=== PATIENT | female | born 1990 | race Caucasian/White ===

== ENCOUNTER → 2021-09-12 12:17 | Outpatient (CLI) | payer SELFPAY ==
--- NOTE | 2021-09-12 12:21 | DI.US.S_ITS ---
PROCEDURE: US OB >= 14 WEEKS FETUS INDICATIONS: 20 wk anatomy screen - is already 25 weeks OUTSIDE/PRIOR DATING DATA: First dating scan (date and location): 09/12/2021. Estimated date of delivery (AUDRA) from first dating scan: 11/30/2021. The calculations are made using the ultrasound AUDRA of 11/30/2021. TECHNIQUE: Real-time scanning was performed of the fetus, with image documentation and biometric measurements. COMPARISON: None. FINDINGS: General: A single living intrauterine gestation is present. Presentation: Vertex. Placenta: Placental position is posterior , without previa. Amniotic fluid index: 14 cm, normal range is 5-24 cm. heart rate: 143 beats per minute. Maternal cervical canal: 5.7 cm long. Normal lower limit is 2.5 cm. biometrics: Biparietal diameter: 29 weeks 5 days Head circumference: 29 weeks 3 days Abdominal circumference: 28 weeks 1 day Femur length: 27 weeks 3 days Clinically estimated gestational age: N/a Composite gestational age from present scan: 28 weeks 5 days Estimated weight and percentile: 1182 g Anatomic survey: Neuro: Suboptimally visualized. Nuchal skin fold: Normal at less than 6 mm between 14-21 weeks gestational age. Face: Nose and lips, facial profile are normal. Spine: Suboptimally visualized. Heart: 4-chambered heart is present, and cardiac outflow tracts are not well seen. Diaphragm: Diaphragm is intact. Stomach: Left-sided stomach is present. Kidneys: No hydronephrosis. Normal is less than 5 mm in 2nd trimester, less than 7 mm in 3rd trimester. Cord: Not well seen. Bladder: Normal in size. Extremities: Suboptimally visualized. IMPRESSION: 1. A 28-week 5-day single living IUP corresponding to ultrasound AUDRA of 11/30/2021. 2. Limited anatomic survey secondary to advanced gestational age. We strive to produce accurate, complete, and clear reports of imaging services. To assist us in improving patient care, this report was composed using standard report templates and voice recognition software. Therefore, it may contain abnormal punctuation, insertions and/or omissions. Occasional wrong-word or sound-alike substitutions may occur. Though we review the report and make efforts to correct it, we do recommend that the report be read carefully in proper context to recognize any text inaccuracies. Dictated by: Tunde SMITH Interpreted: Nirmal Underwood MD on 09/12/2021 at 13:20 Transcribed by: RAMÓN on 09/12/2021 at 13:23 Approved by: Nirmal Underwood M.D. on 09/12/2021 at 13:46
[2021-09-12 14:33] LABS: Appearance Urine UA SL CLOUDY; Bilirubin Urine UA NEGATIVE (NEGATIVE); Color Urine UA YELLOW; Glucose Urine UA NEGATIVE (Negative); Ketones Urine UA NEGATIVE (NEGATIVE); Leukocyte Esterase Urine UA NEGATIVE (NEGATIVE); Nitrite Urine UA NEGATIVE (Negative); Occult Blood Urine UA NEGATIVE (Negative); Protein Urine UA NEGATIVE (Negative); Specific Gravity Urine UA 1.015 (1.000-1.035); Urobilinogen Urine UA 0.2 E.U./dL (0.2)
[2021-09-12 15:23] LABS: Add Manual Diff / Slide Review NO; Basophils Absolute Auto 0 /uL (0-100); Basophils Percent Auto 0.1 % (0-2); Eosinophils Absolute Auto 100 /uL (0-450); Eosinophils Percent Auto 0.7 % (2-4); Hematocrit 31.1 % (36-46); Hemoglobin 10.7 g/dL (12.0-16.0); Lymphocytes Absolute Auto 1200 /uL (1100-4500); Lymphocytes Percent Auto 11.5 % (25-40); Mean Corpuscular HGB Conc 34.3 % (30-36); Mean Corpuscular Hemoglobin 31.6 PG (26-34); Mean Corpuscular Volume 92.1 fL (80-100); Monocytes Absolute Auto 700 /uL (0-900); Monocytes Percent Auto 6.3 % (3-14); Neutrophils Absolute Auto 8700 /uL (1500-7000); Neutrophils Percent Auto 81.4 % (50-75); Platelet Count 287 X10^3/uL (150-400); Red Blood Cell Count 3.37 X10^6/uL (4.0-5.2); Red Cell Distribution Width 13.7 % (11.6-14.8); White Blood Cell Count 10.8 X10^3/uL (4.5-11.0)
[2021-09-12 16:10] LABS: GTT (PREG) 1 Hour PP 50gm Dose 136 mg/dL (76-139)
[2021-09-13 06:07] LABS: RPR Screen Non Reactive (Non Reactive)
[2021-09-13 08:41] LABS: Varicella IgG Antibody <135 index (Immune >165)
[2021-09-14 16:24] LABS: Hepatitis B Surface Antigen NEGATIVE s/c (NEGATIVE); Rubella Antibody IgG 1.7 IU/mL (>15)
[2021-09-14 16:39] LABS: HIV 1 & 2 Ab/Ag 4th Gen Combo NEGATIVE (NEGATIVE); Hep C Virus Ab w/Reflex Quant NEGATIVE s/c (NEGATIVE)
== END ==
PROVIDERS: PCP Obstetrics & Gynecology; Referring Provider Obstetrics & Gynecology; Visit Provider Obstetrics & Gynecology
DX: Z34.83 Encounter for supervision of other normal pregnancy, third trimester (principal); Z3A.28 28 weeks gestation of pregnancy
CPT/HCPCS: 36415; 76811; 80055; 81003; 82950; 86787; 86803; 86850; 86900; 86901; 87086; 87389

== ENCOUNTER → 2021-10-09 15:34 | Outpatient (CLI) | payer MEDICAID, SELFPAY ==
[2021-10-09 21:34] LABS: Urine N gonorrhoeae NOT DETECTED
[2021-10-09 21:45] LABS: Urine Chlamydia NOT DETECTED
== END ==
PROVIDERS: PCP Obstetrics & Gynecology; Visit Provider Obstetrics & Gynecology
DX: Z34.82 Encounter for supervision of other normal pregnancy, second trimester (principal); Z3A.27 27 weeks gestation of pregnancy
CPT/HCPCS: 87491; 87591

== ENCOUNTER → 2021-11-15 15:32 | Outpatient (CLI) | payer OTHER, MEDICAID, SELFPAY ==
[2021-11-17 09:47] LABS: Strep Grp B PCR POS for Grp B Strep
== END ==
PROVIDERS: PCP Obstetrics & Gynecology; Visit Provider Obstetrics & Gynecology
DX: Z36.85 Encounter for antenatal screening for Streptococcus B (principal); Z3A.37 37 weeks gestation of pregnancy
CPT/HCPCS: 87653

== ENCOUNTER 2021-11-23 15:27 | Outpatient (CLI) | payer OTHER, MEDICAID, SELFPAY | END 2021-11-23 16:15 | disposition home or self-care (01) | LOC: OB 11-26 10:49 | PROVIDERS: PCP Obstetrics & Gynecology; Referring Provider Obstetrics & Gynecology; Visit Provider Obstetrics & Gynecology | DX: O36.8130 Decreased fetal movements, third trimester, not applicable or unspecified (principal); Z3A.39 39 weeks gestation of pregnancy | CPT/HCPCS: 59025; G0378; G0379 ==

== ENCOUNTER 2021-11-29 16:58 | Inpatient (IN) | payer OTHER, MEDICAID, SELFPAY ==
--- NOTE | 2021-11-29 18:13 | P.HPOB_ITS ---
OB HPI Date/Time Date of admission: 11/29/21 Date Patient Seen: 11/29/21 Time Patient Seen: 18:14 History of Present Condition Chief complaint: GETTING STENT IN HAND FOR ANTIBIOTICS FOR LABOR AUDRA Calculator Estimated Delivery Date Method Current WG Current Estimate 11/30/21 Manual 39w 6d Other Estimates 12/12/21 LMP (Certain) 38w 1d Estimated Gestational Age (weeks): 39+6 : 2 Para: 1 care: limited care, initiated at week # (29), number of visits (6) and pounds weight gain (2) Dating criteria OB: LMP confirmed by 2nd trimester US Ultrasounds: normal mid trimester US Obstetrical complications: none Medical complications OB: none Indications Indication for induction OB: other (Poor dating) Preadmission Labs Last OB Lab Results: Blood Type O Positive 11/29/21 19:00 11/29/21 Antibody Screen Negative 11/29/21 19:00 11/29/21 Hematocrit 35.2 % (36-46) L 11/29/21 19:00 11/29/21 Hemoglobin 12.1 g/dL (12.0-16.0) 11/29/21 19:00 11/29/21 Hepatitis B Surface Antigen Negative s/c (NEGATIVE) 09/12/21 13:44 09/12/21 Hepatitis C Antibody Negative s/c (NEGATIVE) 09/12/21 13:44 09/12/21 Rubella Antibody 1.7 IU/mL (>15) L 09/12/21 13:44 09/12/21 Varicella-Zoster IgG Antibody <135 index (Immune >165) L 09/12/21 13:44 09/12/21 Glucose 1 Hour 136 mg/dL (76-139) 09/12/21 13:44 09/12/21 Group B Streptococcus (PCR) Pos for grp b strep H 11/15/21 15:32 11/15/21 -: Chlamydia screen: negative, Gonorrhea screen: negative and Urine: negative External Labs -: Urine: negative Prior (ies) Past Pregnancies Del. Date GA/Weeks Labor Lgth Wt Sex Route Outcome Anesthesia Place Delv Breastfeed Preg Comp Name 10/31/17 35 5 5 lb 15 oz Female vaginal live - epidur al IH 2 yrs labor delivery Liara Evaluation Evaluation Baseline heart rate: 140 Variability: Moderate (11-25) monitor accelerations: Present Monitor Decelerations: Absent Contraction Frequency (minutes): 6 Uterine Contraction Intensity: Mild Status: Category l Dilation (cm): 6 Effacement (%): 85 station: 0 Position of cervix: anterior Consistency: medium [facility] Medical History (Updated 10/15/21 @ 16:48 by Pinky Molina MD) Premature delivery Family History (Updated 05/09/18 @ 16:55 by Natasha Latif) Father Diabetes mellitus Mother Hypertension Family/Other Asthma Social History marital status: number of children: 1 household members: spouse and family (father) lives independently: Yes caregiver/support person: Yes housing: house pets and animals: Yes (2 dogs) education level: college occupational status: unemployed current occupational exposures/hazards: No seatbelt use: always water heater temp set < 120 deg: No (will reset ) working smoke detector in home: Yes fire extinguisher in home: Yes carbon monox detector in home: Yes firearms in home: No do you feel safe at home: Yes Smoking Status: Never smoker alcohol intake: never during the past year weight has: remained stable well-balanced diet: daily or most days daily servings fruits/ve-4 caffeine: Yes (Soda) eating out: 1-3 times/week Type(s) of exercise: walking frequency: 1-2 times per week Meds Home Medications and Allergies Home Medications Medication Instructions Recorded Confirmed Type prenat.vits,darian,rwa-nmwy-asrth 1 tab PO DAILY 09/04/21 11/29/21 History Allergies Allergy/AdvReac Type Severity Reaction Status Date / Time No Known Drug Allergies Allergy Verified 11/29/21 19:38 OB Exam Narrative Exam Narrative: Generally: Patient comfortable with contractions Lungs: Clear to auscultation bilaterally Cardiovascular: Regular rate and rhythm Fundal height: 40 cm Estimated weight: 7-1/2 lb Extremities: Trace edema, 1+ DTRs Objective Labs Result Diagrams: 11/29/21 19:00 Assessment and Plan Assessment and Plan Assessment and Plan narrative: Assessment: 30-year-old 2 para 1 at 39 and 6 seventh weeks gestation with advanced cervical dilation, lives 1+ hour from the hospital GBS positive Plan: GBS prophylaxis After second dose of antibiotics will perform artificial rupture of membranes Pitocin as necessary Expected management to spontaneous vaginal delivery Time Spent with Patient Total time spent with greater than 50% in coordination of care (as documented) at patient's floor/unit and/or counseling patient:: 15-24 minutes
[2021-11-29] MEDS: PENICILLIN G POTASSIUM 5,000,000 UNIT in DEXTROSE 5% IN WATER 250 ML IV (18:59)
[2021-11-29 19:06] LABS: COVID19 -Nasal RAPID Negative (Negative)
[2021-11-29 19:19] LABS: Add Manual Diff / Slide Review NO; Basophils Absolute Auto 0 /uL (0-100); Basophils Percent Auto 0.2 % (0-2); Eosinophils Absolute Auto 100 /uL (0-450); Eosinophils Percent Auto 0.4 % (2-4); Hematocrit 35.2 % (36-46); Hemoglobin 12.1 g/dL (12.0-16.0); Lymphocytes Absolute Auto 1700 /uL (1100-4500); Lymphocytes Percent Auto 12.1 % (25-40); Mean Corpuscular HGB Conc 34.3 % (30-36); Mean Corpuscular Hemoglobin 31.7 PG (26-34); Mean Corpuscular Volume 92.4 fL (80-100); Monocytes Absolute Auto 1200 /uL (0-900); Monocytes Percent Auto 8.6 % (3-14); Neutrophils Absolute Auto 11000 /uL (1500-7000); Neutrophils Percent Auto 78.7 % (50-75); Platelet Count 279 X10^3/uL (150-400); Red Blood Cell Count 3.81 X10^6/uL (4.0-5.2); Red Cell Distribution Width 14.5 % (11.6-14.8)
[2021-11-29 19:37] VITALS: BP 138/79
[2021-11-29] MEDS: PENICILLIN G POTASSIUM 3,000,000 UNIT/50 ML FROZ.PIGGY 100 UNIT IV (22:55)
--- NOTE | 2021-11-29 23:10 | PM.OBPNLAB ---
Date/Time Date Patient Seen: 11/29/21 Time Patient Seen: 23:10 Pain Control Pain control: tolerating well Pelvic Exam Dilation (cm): 6 Effacement (%): 85 station: 0 Amniotic membrane status: Intact Contractions Contractions on admission: irregular Monitor mode: External Contraction frequency (min): 6 Contraction duration (min): 1 Contraction pattern: Irregular Contraction intensity: Mild Status status: Category l Heart Rate Baseline: 135 Monitor Accelerations: Present Monitor Decelerations: Absent Monitor Variability: Moderate Assessment and Plan Plan: begin patient augmentation (AROM, Pitocin as needed) Comments: Artificial rupture of membranes with copious clear amniotic fluid
--- NOTE | 2021-11-30 00:35 | P.PCN_ITS ---
Regional Block Pre-procedure Procedure: Continuous Lumbar Epidural for L&D Attending OB provider: Pinky Molina PMH/ROS narrative: term labor, no complications ASA Class: II Labs: Hct 35.2 % (36-46) L 11/29/21 19:00 Plt Count 279 X10^3/uL (150-400) 11/29/21 19:00 Medications: Current Medications Generic Name Dose Route Start Last Admin Trade Name Freq PRN Reason Stop Dose Admin Calcium Carbonate 1,000 mg 11/29/21 18:10 Calcium Carbonate 500 Mg Tab PO Q2HR PRN Dyspepsia Carboprost Tromethamine 250 mcg 11/29/21 18:10 Carboprost 250 Mcg/Ml Ampul IM Q90M PRN Bleeding Fentanyl 50 mcg 11/29/21 18:37 Fentanyl 250 Mcg/5 Ml Inj IV Q1H PRN Pain, Moderate (4-6) Lactated Ringer's 1,000 mls @ 100 mls/hr 11/29/21 18:15 Lactated Ringers IV CONT CHIP Oxytocin/Lactated Ringer's 30 unit in 500 mls @ 200 mls/hr 11/29/21 18:10 Oxytocin Premix IV CONT PRN Bleeding Protocol Tranexamic Acid 1,000 mg/ 100 mls @ 200 mls/hr 11/29/21 18:10 Sodium Chloride IV NOW PRN Bleeding Penicillin G Potassium 3,000,000 unit in 50 mls @ 100 mls/hr 11/29/21 23:00 11/29/21 22:55 Penicillin G Potassium IV 100 mls/hr Q4H CHIP Administration Oxytocin/Lactated Ringer's 30 unit in 500 mls @ 3 mls/hr 11/29/21 18:15 Oxytocin Premix IV TITRATE CHIP Protocol 3 MILLIUNIT/MIN Methylergonovine Maleate 0.2 mg 11/29/21 18:10 Methylergonovine 0.2 Mg Tablet PO Q6HR PRN Heavy Bleeding Methylergonovine Maleate 0.2 mg 11/29/21 18:10 Methylergonovine 0.2 Mg/Ml Vial IM NOW PRN Bleeding Metoclopramide HCl 10 mg 11/29/21 18:10 Metoclopramide 10 Mg/2 Ml Inj IV NOW PRN Nausea And Vomiting Misoprostol 800 mcg 11/29/21 18:10 Misoprostol 200 Mcg Tablet PA NOW PRN Bleeding Misoprostol 1,000 mcg 11/29/21 18:10 Misoprostol 200 Mcg Tablet PA NOW PRN Bleeding Misoprostol 400 mcg 11/29/21 18:10 Misoprostol 200 Mcg Tablet SL NOW PRN Bleeding Nalbuphine HCl 2.5 mg 11/30/21 00:34 Nalbuphine 20 Mg/Ml Ampul IV Q10M PRN Pruritis Naloxone HCl 0.2 mg 11/29/21 18:10 Naloxone 0.4 Mg/Ml Vial IV Q2MIN PRN Opiate Reversal Ondansetron HCl 4 mg 11/29/21 18:10 Ondansetron 4 Mg/2 Ml Inj IV Q4HR PRN Nausea And Vomiting Oxytocin 10 unit 11/29/21 18:10 Oxytocin 10 Unit/Ml Vial IM NOW PRN Bleeding Allergies: Allergies Allergy/AdvReac Type Severity Reaction Status Date / Time No Known Drug Allergies Allergy Verified 11/29/21 19:38 Procedure Insertion date: 11/30/21 Prep/Local: betadine x3 and 1% lidocaine Interspace: L2-3 Patient position: sitting Needle: 18 gauge SysClass (CSE: 27g Pencan through Hustead, clear CSF, 1mL 0.25% bupiv) Loss of resistance with: saline CRISTIANO at (cm): 6 Catheter placed at SKIN (cm): 11 Catheter in SPACE (cm): 5 Insertion: No CSF, No Blood, No Paresthesia with insertion, No Paresthesia with injection and No Test dose reaction Initial Medications TEST DOSE time: : TEST DOSE: 1.5% lidocaine with epinephrine 1:200k (mL): 3 BOLUS DOSE time: :34 BOLUS DOSE (mL): 3 BOLUS DOSE med: other (infusate) Infusion INFUSION: 0.125% bupivacaine and with fentanyl 2 mcg/mL Initial rate (mL/hr): 8 Subsequent interventions: 10mg ephedrine 0143 for BP 80's/50's, nausea Post-procedure Anesthesia time START: 01:10 Anesthesia time END: 02:27 Post-procedure Anesthesia Assessment: Yes CV function: HR/BP stable, Yes Resp function: RR/sat/airway adequate, Yes Mental status appropriate and No Anesthesia complications
--- NOTE | 2021-11-30 03:00 | P.PCNOB_ITS ---
Events: Labor Augmentation Labor & Delivery Delivery date: 11/30/21 Intrapartal Events: None Cervical ripening method: none Induction method: none Delivery augmentation: rupture of membranes Delivery monitor: external FHT and external uterine Route of delivery: Episiotomy description: None L&D Laceration Description: Labial (right, superficial) and Superficial (perineal) Delivery repair: chromic Estimated blood loss (mL): 150 Anesthesia Type: Epidural Complications: None [place] Baby 1: gender: Male Presentation: vertex Position: Right Occiput Anterior Placenta delivery description: Spontaneous Cord Vessel Description: 3 Vessels, Clamped/Cut and Around Body x1 score (1 min): 8 score (5 min): 9 weight: 8 lb Narrative: Patient complete and pushed for 10 minutes. At 0237, a live male infant delivered spontaneously over an intact perineum in the NICKO presentation. The remainder of the body delivered without difficulty and was placed on mom's abdomen. After the cord stopped pulsing, the cord was double clamped and cut. Pitocin was started in the IV fluids. Cord bloods were obtained. The placenta delivered intact with a three-vessel cord at 0233. Fundus was massaged to firm. There was a right superficial labial laceration as well as superficial perineal lacerations. These were closed with 4 0 chromic in the usual fashion. Hemostasis was achieved. Apgars 8 at 1 minute and 9 at 5 minutes. Epidural analgesia. weight 8 lb. . Mom and infant stable to rec overy. Plan for aftercare: Routine care
[2021-11-30] MEDS: IBUPROFEN 600 MG TABLET PO ×3 (08:01→20:21)
[2021-11-30] MEDS: ACETAMINOPHEN 325 MG TABLET 650 MG PO ×3 (08:02→20:22)
[2021-11-30] MEDS: LANOLIN OINT 7 GM 1 APPLIC TOP (20:22)
[2021-12-01] MEDS: IBUPROFEN 600 MG TABLET PO ×2 (02:45→11:02)
[2021-12-01] MEDS: ACETAMINOPHEN 325 MG TABLET 650 MG PO ×2 (02:45→14:00)
[2021-12-01 06:46] LABS: Hematocrit 32.9 % (36-46); Hemoglobin 11.1 g/dL (12.0-16.0)
[2021-12-01] MEDS: DOCUSATE 100 MG CAPSULE PO (11:01)
[2021-12-01] MEDS: PRENATAL VIT,CALC/IRON/FOLIC 1 TABLET 1 TAB PO (11:01)
--- NOTE | 2021-12-01 13:30 | P.PNOB_ITS ---
Subjective - OB Subjective Patient comments: no complaints and pain well controlled [place] baby status: doing well and nursing well feeding status: exclusively breast feeding Date Patient Seen: 11/30/21 Time Patient Seen: 10:30 Interval history: Patient is a 30-year-old 2 para 2 status post spontaneous vaginal delivery approximately 12 hours ago. Exam Narrative Exam Narrative: Generally: Patient is sitting up in bed, holding , no acute distress Fundus: Firm at U-1 Extremities: Trace edema, negative Homans Objective Labs Result Diagrams: 12/01/21 06:03 Labs: Laboratory Results - last 24 hr 12/01/21 06:03 Hgb 11.1 L Hct 32.9 L Assessment & Plan Plan day: 1 plan OB: routine care Time Spent With Patient Time: Total time spent is greater than 50% in coordination of care (as documented) at patient's floor/unit and/or counseling patient: Time with patient: 15-24 minutes
--- NOTE | 2021-12-01 13:34 | P.DS_ITS ---
Discharge Providers Provider Date of admission: 11/29/21 16:58 Discharge Date: 12/01/21 Primary care physician: Pinky Molina MD Consults: 12/01/21 02:57 Consult to [employer] Routine Comment: Discharge provider: Pinky Molina MD Summary Hospital Course Date Patient Seen: 12/01/21 Time Patient Seen: 09:50 Diagnoses: Forty weeks gestation Augmentation of labor Spontaneous vaginal delivery Epidural analgesia Superficial laceration repair Group B strep positive Group B strep prophylaxis Hospital Course: Patient is a 30-year-old 2 para 2 who had a spontaneous vaginal delivery in the non destructive evaluation specialist of November 30, 2021. She was augmented in labor with artificial rupture of membranes. She received an epidural for pain management. She had a spontaneous vaginal delivery without complication. She had superficial lacerations which were repaired. Her course was unremarkable. Peripartum Data Infant Delivery Method: Natural Vaginal Laceration Description: Superficial Episiotomy description: None Procedures: Artificial rupture of membranes GBS prophylaxis Spontaneous vaginal delivery Superficial laceration repair complications: none 1: Gender: Male Disposition of : home Status at Discharge Cognitive/behavioral status at discharge: oriented Functional status at discharge: independent ambulation Overall status at discharge: patient is progressing back to baseline Time Spent with Patient Time attestation: Total time spent providing and/or coordinating discharge services: Time spent: Less than 30 minutes Objective Labs Result Diagrams: 12/01/21 06:03 Labs: Laboratory Results - last 24 hr 12/01/21 06:03 Hgb 11.1 L Hct 32.9 L Exam Narrative Exam Narrative: Generally: Patient is sitting up in bed, no acute distress Fundus: Firm at U -1 Extremities: Trace edema, negative Homans Discharge Plan Discharge Plan Patient Disposition: Home Provider Discharge Comment: Call with fever, chills, or bleeding vaginally more than a pad in an hour Ibuprofen 600 mg every 6 hours as needed for cramping Tylenol 650 mg every 6 hours as needed for pain Discharge orders & Medications Prescriptions: Continued prenat.vits,darian,apc-fkke-yylpy Tablet 1 tab PO DAILY 0RF No Action (DME) Double electric breast pump See Rx Instructions .Route .MEDSUPPLY Qty: 1 0RF Rx Instructions: AUDRA 11/30/21 Follow up/Referrals: Pinky Molina MD [Primary Care Provider] - 6 Weeks Diet/Activity/Treatments Diet: Regular Activity: Nothing in the vagina for 6 weeks Skin/Wound/Dressing Care Report to your healthcare provider any signs of infection, such as:: chills, fever, increased pain and unusual drainage Visit Report/Discharge Packet Instructions: DI for Labor and Delivery, Vaginal Discharge Data Primary Care Provider: Pinky Molina
== END 2021-12-01 15:30 | disposition home or self-care (01) | DRG 560 ==
PROVIDERS: Admitting Provider Obstetrics & Gynecology; PCP Obstetrics & Gynecology; Referring Provider Obstetrics & Gynecology; Visit Provider Obstetrics & Gynecology
DX: O99.824 Streptococcus B carrier state complicating childbirth (principal); Z3A.39 39 weeks gestation of pregnancy; Z37.0 Single live birth; O70.0 First degree perineal laceration during delivery; Z20.822 Contact with and (suspected) exposure to COVID-19
CPT/HCPCS: 01967; 36415; 59050; 59409; 85014; 85018; 85025; 86850; 86900; 86901; 87635; C9803; G0379; J2540

== ENCOUNTER → 2022-09-20 16:52 | Outpatient (CLI) | payer OTHER, MEDICAID, SELFPAY ==
--- NOTE | 2022-09-20 16:57 | DI.RAD.S_ITS ---
PROCEDURE: XR CHEST 2V INDICATIONS: Right-sided Chest wall discomfort TECHNIQUE: 2 views of the chest were acquired. COMPARISON: None. FINDINGS: Surgical changes and devices: None. Lungs and pleura: Lungs are clear. No pleural effusions or pneumothorax. Mediastinum: Mediastinal contours are normal. Heart size is normal. Bones and chest wall: No suspicious bony abnormalities. Soft tissues appear unremarkable. IMPRESSION: No acute cardiopulmonary abnormalities or focal airspace disease. Dictated by: Sancho Salinas M.D. on 09/20/2022 at 17:35 Approved by: Sancho Salinas M.D. on 09/20/2022 at 17:36
== END ==
PROVIDERS: Referring Provider Registered Nurse; Visit Provider Registered Nurse
DX: R07.89 Other chest pain (principal)
CPT/HCPCS: 71046